=== PATIENT | male | born 1990 | race Caucasian/White ===

== ENCOUNTER 2019-09-28 22:51 | Emergency (ER) | payer OTHER, SELFPAY ==
[2019-09-28 22:53] VITALS: BP 148/74; PULSE 109; RESP 18; TEMP 36.7; O2SAT 97; BMI 21.7
[2019-09-28 23:51] VITALS: BP 126/63; PULSE 101; RESP 19; O2SAT 96
--- NOTE | 2019-09-28 23:51 | ED_ITS ---
HPI - General Adult General: Chief complaint: Upper Respiratory Infection Stated complaint: fever,sore throat,body aches Time Seen by Provider: 09/28/19 23:51 History of Present Illness: HPI narrative: Fever and chills last couple days missed work today desires a note for work does have some body aches sore throat. complaint: uri Onset (ago): day(s) Associated symptoms: Deny chest pain, dyspnea, headache(s), nausea, rash or vomiting Review of Systems Const: Denies: fever, chills or body aches Eyes: Denies: change in vision or blurry vision ENMT: Reports: throat pain and nasal congestion Card: Denies: chest pain or shortness of breath on exertion Resp: Reports: non-productive cough; Denies: shortness of breath or productive cough GI: Denies: abdominal pain, nausea or vomiting : Denies: difficulty urinating Musc: Denies: extremity pain Skin/Breast: Denies: rash Neuro: Denies: headache Psych: Denies: anxiety or depression Logan/Lymph: Denies: easy bruising PFSH ED PFSH: Statuses (acute, chronic, etc) shown below reflect problem list status as previously entered and may not be historically accurate Social History Smoking and tobacco status: current every day smoker Physical Exam Const: COMMON NORMALS: no apparent distress, average body habitus and oriented x3 HENMT: COMMON NORMALS: normocephalic HEAD & SCALP: normal to inspection and normocephalic FACE & SINUS: sinus tenderness NOSE: nasal discharge Eye: COMMON NORMALS: conjunctivae normal GENERAL EYE: normal appearance of both eyes CONJUNCTIVA: Yes conjunctivae normal Neck/C-Spine: COMMON NORMALS: no JVD Chest: COMMONS NORMALS: inspection of chest normal Resp: COMMON NORMALS: normal respiratory effort and clear to auscultation bilaterally AUSCULTATION: clear to auscultation bilaterally Cardio: COMMON NORMALS: no JVD, regular rate and regular rhythm RATE: regular rate RHYTHM: regular rhythm GI: COMMON NORMALS: normal to inspection, nondistended, normoactive bowel sounds Extremity: COMMON NORMALS: normal to inspection and full ROM Neuro: COMMON NORMALS: oriented x3 Course Vital Signs: Vital signs: Vital Signs Temperature 98.1 F 09/28/19 22:53 Pulse Rate 109 H 09/28/19 22:53 Respiratory Rate 18 01/08/20 22:53 Blood Pressure 148/74 09/28/19 22:53 Pulse Oximetry 97 09/28/19 22:53 Discharge Plan Discharge Clinical Impression: Upper respiratory infection Qualifiers: URI type: acute pharyngitis Pharyngitis/tonsillitis etiology: other specified organisms Qualified Code(s): J02.8 - Acute pharyngitis due to other specified organisms Condition: Stable Prescriptions: New cephalexin [Keflex] 500 mg capsule 500 mg PO TID 7 Days Qty: 21 RF: 0 No Action No Known Home Medications RF: 0 Discharge Diet: Usual diet Discharge Activity: Increase activity as tolerated Patient Instructions: Upper Respiratory Infection (ED) Activity Restrictions/Additional Instructions: Follow-up with medical provider as directed. Take medications as prescribed. Return to the ER are your medical provider if condition worsens. Read and understand discharge instructions. Stand Alone Forms: Work/Release Restrictions Coding Level of Care Code ED Java Front End Web Developer for Jemma Antunez
[2019-09-28] MEDS: cephALEXin 500 mg Capsule PO (23:59)
[2019-09-29 00:12] VITALS: BP 119/79; PULSE 100; RESP 18; TEMP 36.9; O2SAT 96
== END 2019-09-29 00:14 | disposition home or self-care (01) ==
PROVIDERS: Emergency Provider Nurse Practitioner Family
DX: J02.8 Acute pharyngitis due to other specified organisms (principal); F17.210 Nicotine dependence, cigarettes, uncomplicated
CPT/HCPCS: 99281

== ENCOUNTER 2020-09-14 16:29 | Emergency (ER) | payer SELFPAY ==
--- NOTE | 2020-09-14 16:52 | XRR_ITS ---
PROCEDURE INFORMATION: Exam: XR Right Shoulder Exam date and time: 09/14/2020 4:53 PM Age: 30 years old Clinical indication: Injury or trauma; Fall; Blunt trauma (contusions or hematomas); Patient HX: Fell on right shoulder TECHNIQUE: Imaging protocol: XR Right shoulder. Views: 2 or more views. COMPARISON: No relevant prior studies available. FINDINGS: Bones/joints: Comminuted fracture through the mid right clavicle with inferior overriding of the distal fragment. The other bones appear intact and in normal alignment. Soft tissues: Normal. XR/XR shoulder RT min 2V* [id number] IMPRESSION: Displaced right clavicle fracture.
--- NOTE | 2020-09-14 16:52 | XRR_ITS ---
PROCEDURE INFORMATION: Exam: XR Right Clavicle, Complete Exam date and time: 09/14/2020 4:53 PM Age: 30 years old Clinical indication: Injury or trauma; Fall; Blunt trauma (contusions or hematomas); Patient HX: Fell on right shoulder TECHNIQUE: Imaging protocol: XR Right clavicle complete. Any number of views. COMPARISON: No relevant prior studies available. FINDINGS: Bones/joints: Comminuted fracture through the mid right clavicle. Inferior overriding of the distal fracture fragment. Soft tissues: Normal. XR/[place] [id number] IMPRESSION: Displaced right clavicle fracture.
[2020-09-14 16:53] VITALS: BP 153/97; PULSE 90; RESP 14; TEMP 36.6; O2SAT 99; BMI 22.6
[2020-09-14] MEDS: TRAMadol 50 mg Tablet PO (17:16)
--- NOTE | 2020-09-14 17:26 | W.ED.EXTPRO ---
HPI - Extremity Problem General: Chief complaint: Extremity Injury, Upper Stated complaint: injury to rt collarbone Time Seen by Provider: 09/14/20 17:04 History of Present Illness: HPI Narrative: Fell yesterday while skateboarding injuring his right clavicle. Complaint: extremity pain Onset (ago): day(s) Pain Consistency: constant Location: right Severity scale (1-10): 4 Quality: aching Radiation: none Relieving factors: immobilization Exacerbating factors: range of motion Associated symptoms: Reports no associated symptoms; Deny chest pain, fever(s) or rash Review of Systems Const: Denies: fever(s), chills or body aches Eyes: Denies: change in vision or blurry vision ENMT: Denies: throat pain or nasal congestion Card: Denies: chest pain or dyspnea on exertion Resp: Denies: dyspnea, productive cough or non-productive cough GI: Denies: abdominal pain, nausea or vomiting : Denies: difficulty urinating Musc: Reports: extremity pain (Right clavicle area fell while skateboarding yesterday) Skin/Breast: Denies: rash Neuro: Denies: headache(s) Psych: Denies: anxiety or depression Logan/Lymph: Denies: easy bruising PFSH ED PFSH: Social History Smoking and tobacco status: current every day smoker Physical Exam Const: COMMON NORMALS: no acute distress and patient oriented x3 Extremity: RIGHT UPPER EXTREMITY: Yes clavicle (Tender midshaft mild swelling) Neuro: COMMON NORMALS: patient oriented x3 Psych: COMMON NORMALS: mental status grossly normal Course Vital Signs: Vital signs: Vital Signs Temperature 97.9 F 09/14/20 16:53 Pulse Rate 90 09/14/20 16:53 Respiratory Rate 14 09/14/20 16:53 Blood Pressure 153/97 09/14/20 16:53 Pulse Oximetry 99 09/14/20 16:53 Discharge Plan Discharge Patient Disposition: Home Clinical Impression: Fracture of clavicle Qualifiers: Encounter type: initial encounter Clavicle location: shaft Fracture type: closed Fracture alignment: displaced Laterality: right Qualified Code(s): S42.021A - Displaced fracture of shaft of right clavicle, initial encounter for closed fracture Condition: Stable Prescriptions: New tramadol 50 mg tablet 50 mg PO TID PRN (Reason: pain) Qty: 14 RF: 0 Discharge Orders: Discharge ED (Routine); Ordered 09/14/20 Ordered By: Jose Caruso Discharge Diet: Advance as tolerated Discharge Activity: Increase activity as tolerated Patient Instructions: Clavicle Fracture (ED) Activity Restrictions/Additional Instructions: Follow-up with medical provider as directed. Take medications as prescribed. Return to the ER or your medical provider if condition worsens. Please read and understand discharge instructions. If any questions ask please. Coding Level of Care Code ED Electric Motor Repairer for Jemma Fwd Exam Expanded Problem Focused
--- NOTE | 2020-09-17 08:30 | DCPLANNER ---
dental laboratory manager had message to schedule a follow up appointment for patient with ortho. dental laboratory manager called the ortho clinic, spoke with Svetlana, gave clinic patients information. dental laboratory manager was told that patients information would be printed and reviewed. Clinic will call patient with appointment information.
--- NOTE | 2020-09-18 08:33 | DCPLANNER ---
Svetlana from [facility] called piano case maker stating that the clinic tried to call patient and is unable to reach patient to schedule an appointment. manager cash called phone number [phone], this number is no longer in service. manager cash called phone number [phone] and left a voicemail with patients friend.
== END 2020-09-14 17:35 | disposition home or self-care (01) ==
PROVIDERS: Emergency Provider Nurse Practitioner Family
DX: S42.021A Displaced fracture of shaft of right clavicle, initial encounter for closed fracture (principal); F17.210 Nicotine dependence, cigarettes, uncomplicated; V00.131A Fall from skateboard, initial encounter
CPT/HCPCS: 12345; 73000; 73030; 99281; 99283

== ENCOUNTER 2022-02-10 11:52 | Observation (INO) | payer MEDICAID, SELFPAY ==
[2022-02-10 12:15] VITALS: BP 142/97; PULSE 112; RESP 17; TEMP 36.2; O2SAT 100; BMI 21.7
--- NOTE | 2022-02-10 12:30 | CT_ITS ---
WS: [id number] CT ABDOMEN AND PELVIS WITH CONTRAST HISTORY: abd pain, RIGHT lower quadrant pain for one day. TECHNIQUE: Imaging performed of the abdomen and pelvis with IV contrast. Single phase imaging of the abdomen. Coronal and sagittal reformats are submitted. All CT scans at [facility] use at [address] one of these dose optimization techniques: automated exposure control; mA and/or kV adjustment per patient size (includes targeted exams where dose is matched to clinical indication); or iterative re construction. IV CONTRAST: Omnipaque 350; 50 mL IV. Oral contrast: No DLP: 837.12 mGy.cm COMPARISON: None available. Lower thorax: Lung bases are clear. Heart is normal size. No hiatal hernia. Liver/biliary system: Normal size liver. There is an area of decreased density surrounding the hepati c veins and the caudate lobe in the central liver. Normal course of the vasculature with no displacem ent or splaying. Favor this is probably hepatic steatosis. No bile duct dilatation. Gallbladder: Mildly hydropic gallbladder. There is a very large amount of stranding surrounding the g allbladder. Large amount of inflammation extends from the gallbladder to involve the hepatic flexure and the duodenum and pancreatic head and uncinate process. No stones are noted within the gallbladder . Pancreas: Pancreas is normal size. Mild stranding and fluid surrounding the pancreatic head. No bile duct dilatation. Spleen: Normal size spleen. No mass or infarct. Adrenal glands: Normal. Right kidney: Normal. Left kidney: Normal. Aorta: Normal. Lymphadenopathy: None. Free fluid: Free fluid within the mesentery with a large amount of mesenteric edema. This abnormality is increased RIGHT upper quadrant The gallbladder, duodenal C-loop and hepatic flexure. No free air. GI tract: Stomach is distended with fluid. Second and third portion of the duodenum is minimal disten ded with fluid and air with adjacent edema. No small bowel obstruction. The appendix is identified an d does appear normal although is closely associated with the inflammation in the RIGHT upper quadrant . The appendix is retrocecal and extends to the tip of the RIGHT lobe of the liver. There is extensiv e fecal retention throughout the colon. Abdominal wall: Unremarkable abdominal wall. No hernia. Pelvis: No free fluid. Minimally distended urinary bladder. Marked fecal retention in the colon. Bones: Negative. CT/CT abdomen pelvis w con* [id number] IMPRESSION: 1. Significant inflammation noted in the RIGHT upper quadrant with fluid and m esenteric edema. The area of inflammation involves the gallbladder, duodenal C- loop, hepatic flexure and the pancreatic head. There is a large amount of edema and mesenteric stranding. Due to the extensive process differential includes a cute cholecystitis, colitis, pancreatitis and duodenitis. 2. Recommend follow-up gallbladder ultrasound to evaluate for stones or sludge . The common bile duct by CT appears normal. 3. The appendix is visualized and does extend retrocecal and is closely associ ated with the inflammation but there is no dilatation. Appendicitis is not favo red. 4. Area of decreased attenuation in the central superior liver is probably fro m hepatic steatosis. Recommend follow-up nonemergent MRI liver with and without contrast.
--- NOTE | 2022-02-10 12:35 | ED_ITS ---
HPI - Abdominal Pain General: Chief Complaint: Abdominal Pain Stated Complaint: abdominal pain Time Seen by Provider: 02/10/22 12:18 Source: patient Mode of arrival: ambulatory Limitations: no limitations History of Present Illness: 31-year-old male who states has been having right upper quadrant and epigastric abdominal pain since yesterday. He states he also had some nausea vomiting diarrhea. He states pain is worsened throughout the day and sharp in nature rates an 8 out of 10. Denies any radiation of his pain. No history of abdominal issues in the past no abdominal surgeries is a daily drinker of alcohol. Associated Symptoms: Reports nausea; Denies chills, dysuria and fever(s) Review of Systems Const: Denies: fever(s), chills, body aches or change in appetite Eyes: Denies: blurry vision or eye discomfort ENMT: Denies: throat pain or dental pain Card: Denies: chest pain Resp: Denies: dyspnea GI: Reports: abdominal pain and nausea : Denies: dysuria Musc: Denies: neck pain or back pain Skin/Breast: Denies: rash Neuro: Denies: headache(s) Psych: Denies: depression Logan/Lymph: Denies: easy bruising All/Imm: Denies: urticaria PFSH ED PFSH: Medical History No pertinent past medical history Social History Smoking and tobacco status: current every day smoker Physical Exam Const: COMMON NORMALS: no acute distress, patient oriented x3 and healthy appearing HENMT: COMMON NORMALS: normocephalic and atraumatic HEAD & SCALP: normocephalic and atraumatic Eye: COMMON NORMALS: Equal, round and reactive pupils present and EOMs intact bilaterally PUPIL: Yes Equal, round and reactive pupils present Neck/C-Spine: COMMON NORMALS: full ROM and supple Chest: COMMONS NORMALS: normal inspection of the chest and normal palpation of entire chest wall Resp: COMMON NORMALS: normal respiratory effort, No retractions, No use of accessory muscles and clear to auscultation bilaterally AUSCULTATION: clear to auscultation bilaterally Cardio: COMMON NORMALS: regular rate, regular rhythm and No murmurs present (Cardio) RATE: regular rate RHYTHM: regular rhythm GI: COMMON NORMALS: Normal to inspection, nondistended, normoactive bowel sounds present, Soft to palpation, non-tender and no masses PALPATION: Yes Soft to palpation and Yes Tenderness to palpation present (GI) Details: RUQ Extremity: COMMON NORMALS: normal to inspection and full ROM Neuro: COMMON NORMALS: patient oriented x3, moves all extremities and no focal motor deficits Psych: COMMON NORMALS: mental status grossly normal, Normal thought process present and cooperative THOUGHT PROCESS: Normal thought process present Skin: COMMON NORMALS: no rashes or lesions noted and no wounds GENERAL SKIN EXAM: no rashes or lesions noted Course Vital Signs: Vital signs: Vital Signs Temperature 97.1 F L 02/10/22 12:15 Pulse Rate 112 H 02/10/22 12:15 Respiratory Rate 16 02/10/22 14:53 Blood Pressure 142/97 02/10/22 12:15 Pulse Oximetry 100 02/10/22 12:15 MDM - Abdominal Pain Medical Decision Making Patient presents here with abdominal pain CT showed possible cholecystitis versus duodenitis pancreatitis with inflammation he is a daily drinker as well. I did speak to surgeon on-call Dr. Haq will admit with IV antibiotics IV fluids along with a HIDA scan in the morning hospitalist consulted for his alcohol abuse he has no signs of withdrawals here. Lab Data : 02/10/22 12:44 02/10/22 14:30 Labs/Radiology: Radiology Impressions Abdomen/Pelvis CT 02/10/22 12:30 IMPRESSION: 1. Significant inflammation noted in the RIGHT upper quadrant with fluid and mesenteric edema. The area of inflammation involves the gallbladder, duodenal C- loop, hepatic flexure and the pancreatic head. There is a large amount of edema and mesenteric stranding. Due to the extensive process differential includes acute cholecystitis, colitis, pancreatitis and duodenitis. 2. Recommend follow-up gallbladder ultrasound to evaluate for stones or sludge. The common bile duct by CT appears normal. 3. The appendix is visualized and does extend retrocecal and is closely associated with the inflammation but there is no dilatation. Appendicitis is not favored. 4. Area of decreased attenuation in the central superior liver is probably from hepatic steatosis. Recommend follow-up nonemergent MRI liver with and without contrast. Laboratory Results WBC 7.3 10^3/uL (4.0-10.0) 02/10/22 12:44 RBC 4.78 10^6/uL (4.1-5.3) 02/10/22 12:44 Hgb 16.0 g/dL (11.7-16.6) 02/10/22 12:44 Hct 46.2 % (42.0-52.0) 02/10/22 12:44 MCV 96.7 fl (80-94) H 02/10/22 12:44 MCH 33.5 pg (28.0-34.0) 02/10/22 12:44 MCHC 34.6 g/dL (30.0-36.0) 02/10/22 12:44 RDW 12.5 % (12.1-15.1) 02/10/22 12:44 Plt Count 212 10^3/cmm (130-400) 02/10/22 12:44 MPV 13.3 fL (7.4-10.4) H 02/10/22 12:44 Lymph % (Auto) Not Reportable 02/10/22 12:44 [place] % (Auto) Not Reportable 02/10/22 12:44 Lymph # (Auto) Not Reportable 02/10/22 12:44 [place] # (Auto) Not Reportable 02/10/22 12:44 Total Counted 100 (0-100) 02/10/22 12:44 Atypical Lymphs % 4.0 % (0-5) 02/10/22 12:44 Absolute Neutrophils 5.8 10^3/cmm (1.4-6.5) 02/10/22 12:44 Segmented Neutrophils 80 % 02/10/22 12:44 Abs Segm Neuts (Man) 5.8 10/cmm (1.6-7.1) 02/10/22 12:44 Band Neutrophils 0.0 % 02/10/22 12:44 Abs Band Neuts (Man) 0.0 10^3/cmm (0.0-1.2) 02/10/22 12:44 Absolute Lymphocytes 1.2 10^3/cmm (1.2-3.4) 02/10/22 12:44 Lymphocytes (Manual) 13 % 02/10/22 12:44 Monocytes (Manual) 1.0 % 02/10/22 12:44 Absolute Monocytes 0.1 10^3/cmm (0.1-0.6) 02/10/22 12:44 Eosinophils (Manual) 2 % 02/10/22 12:44 Absolute Eosinophils 0.1 10^3/cmm (0.0-0.7) 02/10/22 12:44 Basophils (Manual) 0.0 % 02/10/22 12:44 Absolute Basophils 0.0 10^3/cmm (0.0-0.2) 02/10/22 12:44 Platelet Estimate Normal (Normal) 02/10/22 12:44 Sodium 133 mmol/L (136-145) L 02/10/22 14:30 Potassium 4.0 mmol/L (3.5-5.1) 02/10/22 14:30 Chloride 100 mmol/L (98-107) 02/10/22 14:30 Carbon Dioxide 17 mmol/L (22-29) L 02/10/22 14:30 Anion Gap 20.0 (5-19) H 02/10/22 14:30 BUN 8 mg/dL (6-20) 02/10/22 14:30 Creatinine 0.7 mg/dL (0.7-1.2) 02/10/22 14:30 GFR Calculation 129.9 mL/min (90-130) 02/10/22 14:30 Glucose 127 mg/dL (65-115) H 02/10/22 14:30 Calculated Osmolality 276 mOsm/kg (285-295) L 02/10/22 14:30 Calcium 8.1 mg/dL (8.5-10.5) L 02/10/22 14:30 Total Bilirubin 1.4 mg/dL (0.15-1.2) H 02/10/22 14:30 AST 380 U/L (0-40) H 02/10/22 14:30 ALT 206 U/L (0-41) H 02/10/22 14:30 Alkaline Phosphatase 250 IU/L (40-130) H 02/10/22 14:30 Total Protein 5.2 g/dL (6.6-8.7) L 02/10/22 14:30 Albumin 3.0 g/dL (3.5-5.2) L 02/10/22 14:30 Globulin 2.2 g/dL (1.3-4.6) 02/10/22 14:30 Lipase 165 U/L (13-60) H 02/10/22 14:30 Ethyl Alcohol < 10 mg/dL (0-10) 02/10/22 14:30 Discharge Plan Discharge Patient Disposition: Admitted As Inpatient Clinical Impression: Alcohol abuse Abdominal pain Qualifiers: Abdominal location: right upper quadrant Qualified Code(s): R10.11 - Right upper quadrant pain Condition: Stable Coding Level of Care Code ED Regional Office Coordinator for Jemma Fwd Exam Comprehensive
[2022-02-10] MEDS: sodium chloride 0.9% 1,000 ML 999 ML IV (12:50)
[2022-02-10 12:57] VITALS: RESP 20
[2022-02-10] MEDS: ondansetron 2 mg/ML SDV 2 mL 4 MG IVP (12:57)
[2022-02-10] MEDS: morphine 4 mg/mL SDV 1 mL IVP ×2 (12:57→21:44)
[2022-02-10 13:04] LABS: Hematocrit 46.2 % (42.0-52.0); Mean Corpuscular HGB Conc 34.6 g/dL (30.0-36.0); Mean Corpuscular Hemoglobin 33.5 pg (28.0-34.0); Mean Corpuscular Volume 96.7 fl (80-94); Mean Platelet Volume 13.3 fL (7.4-10.4); Platelet Count 212 10^3/cmm (130-400); Red Blood Count 4.78 10^6/uL (4.1-5.3); Red Cell Distribution Width 12.5 % (12.1-15.1); White Blood Count 7.3 10^3/uL (4.0-10.0)
[2022-02-10] MEDS: iohexol 300 mg/mL 100 mL Btl IV (13:22)
[2022-02-10 13:50] LABS: Slide Review Slide Review Perform
[2022-02-10 13:51] LABS: Absolute Segmented Neutrophil 5.8 10/cmm (1.6-7.1); Segmented Neutrophils 80 %; Total Cells Counted 100 (0-100)
[2022-02-10 13:52] LABS: Absolute Eosinophils 0.1 10^3/cmm (0.0-0.7); Absolute Neutrophil 5.8 10^3/cmm (1.4-6.5); Eosinophils 2 %; Lymphocytes 13 %; Lymphocytes Absolute 1.2 10^3/cmm (1.2-3.4); Monocytes Absolute 0.1 10^3/cmm (0.1-0.6); Platelet Estimate Normal (Normal)
[2022-02-10 14:53] VITALS: RESP 16
[2022-02-10] MEDS: HYDROmorphone 1 mg/mL INJ 1 mL IVP (14:53)
[2022-02-10 15:06] LABS: Alkaline Phosphatase 250 IU/L (40-130); Blood Urea Nitrogen 8 mg/dL (6-20); Calcium 8.1 mg/dL (8.5-10.5); Carbon Dioxide 17 mmol/L (22-29); Chloride 100 mmol/L (98-107); Globulin 2.2 g/dL (1.3-4.6); Glomerular Filtration Rate 129.9 mL/min (90-130); Glucose 127 mg/dL (65-115); Lipase 165 U/L (13-60); Osmolality Calculated 276 mOsm/kg (285-295); Sodium 133 mmol/L (136-145); Total Bilirubin 1.4 mg/dL (0.15-1.2); Total Protein 5.2 g/dL (6.6-8.7)
[2022-02-10 15:17] LABS: Alcohol Level < 10 mg/dL (0-10)
[2022-02-10 15:23] LABS: Alanine Aminotransferase 206 U/L (0-41); Aspartate Amino Transferase 380 U/L (0-40)
[2022-02-10] MEDS: piperacillin-tazobactam 3.375 GM in sodium chloride 0.9% (plus) 50 ML IV (15:44)
--- NOTE | 2022-02-10 15:44 | P.CONIM_ITS ---
Providers/Reason For Consult Consulting Physician/Specialty*: Chase Haq/general surgery Reason for Consult*: Management for Alcohol abuse History of Present Illness History of Present Illness Larry Gross is a 31 year old male with pmh of Chronic Alcohol abuse drink about 1 to 1/2 pint dialy came in with c/o rt lower as well as rt upper quadrant abdominal pain started since yesterday,describe it as sharp pain,accompanied with,nausea and bilious vomiting ( 1-2 Episodes), he is also complaining of subjective fever as well as chills. Upon arrival in the ER he was worked up for above mention complain: Pertinent Imaging studies: CT abdomen pelvis w con: 1.? Significant inflammation noted in the RIGHT upper quadrant with fluid and mesenteric edema. The area of inflammation involves the gallbladder, duodenal C- loop, hepatic flexure and the pancreatic head. There is a large amount of edema and mesenteric stranding. Due to the extensive process differential includes acute cholecystitis, colitis, pancreatitis and duodenitis. 2.? Recommend follow-up gallbladder ultrasound to evaluate for stones or sludge. The common bile duct by CT appears normal. 3.? The appendix is visualized and does extend retrocecal and is closely associated with the inflammation but there is no dilatation. Appendicitis is not favored. 4.? Area of decreased attenuation in the central superior liver is probably from hepatic steatosis. Recommend follow-up nonemergent MRI liver with and without contrast. Pertinent Labs : WBC: 7.3 , H&H : 16/46 , PLT : 212, NA : 133, K: 4 , BUN/SCR : 8/0.7 , Ca: 8.1 , T.B : 1.4 , AST: 380, ALT : 206, ALP : 250 , ALB:3 , LIPASE :165 Review of Systems General: Reports: 10 or more systems reviewed and unremarkable except in HPI and below Const: Reports: fever(s) and chills; Denies: body aches, change in appetite or diaphoresis Card: Denies: palpitations, edema, swelling of feet/ankles, dyspnea on exertion, orthopnea or leg pain with exertion Resp: Denies: dyspnea, productive cough, wheezing or pain on inspiration GI: Reports: abdominal pain, nausea and vomiting; Denies: diarrhea or constipation : Denies: flank pain or difficulty urinating Musc: Denies: back pain, extremity pain or extremity swelling Neuro: Denies: headache(s), difficulty walking or confusion Medications/Allergies Home Medications Medication Instructions Recorded Confirmed Last Taken Type No Known Home Medications 02/10/22 02/10/22 Unknown History Allergies Allergy/AdvReac Type Severity Reaction Status Date / Time No Known Allergies Allergy Verified 02/10/22 13:05 PFSH Acute PFSH: Medical History No pertinent past medical history Social History Smoking and tobacco status: current every day smoker Vitals/I&O/Wt Last Vital Signs Temp 97.1 F L 02/10/22 12:15 Pulse 112 H 02/10/22 12:15 Resp 16 02/10/22 14:53 BP 142/97 02/10/22 12:15 Pulse Ox 100 02/10/22 12:15 Weight last 48 hrs Weight 61.235 kg Physical Exam Const: COMMON NORMALS: patient oriented x3 HENMT: COMMON NORMALS: normocephalic, atraumatic, hearing grossly normal bilaterally and external ears normal HEAD & SCALP: normocephalic and atraumatic EXTERNAL EAR: Yes external ears normal Eye: COMMON NORMALS: no scleral icterus GENERAL EYE: appearance normal, both eyes and all related structures Chest: COMMONS NORMALS: normal inspection of the chest and normal palpation of entire chest wall CHEST: Yes Symmetrical chest wall rise Resp: COMMON NORMALS: normal respiratory effort, No retractions, No use of accessory muscles and clear to auscultation bilaterally EFFORT & INSPECTION: Yes symmetric chest movement AUSCULTATION: clear to auscultation bilaterally Cardio: COMMON NORMALS: regular rate, regular rhythm, S1 normal heart sound present, S2 normal heart sound present, No gallops present (Cardio), No murmurs present (Cardio), No rub (Cardio) and Peripheral pulses 2+ throughout RATE: r egular rate RHYTHM: regular rhythm HEART SOUNDS: S1 normal heart sound present and S2 normal heart sound present PERIPHERAL PULSES: Peripheral pulses 2+ throughout GI: COMMON NORMALS: Normal to inspection, nondistended, normoactive bowel sounds present, No hepatosplenomegaly present and no masses AUSCULTATION: Yes normoactive bowel sounds PALPATION: Yes No hepatosplenomegaly present RECTAL EXAM: Yes deferred OTHER: Right upper quadrant as well as lower quadrant tenderness present, no guarding no rigidity no rebound tenderness Extremity: COMMON NORMALS: no clubbing, cyanosis or edema and no pedal edema Neuro: COMMON NORMALS: patient oriented x3 Data : 02/11/22 02:55 02/11/22 02:55 A&P Assessment and plan (1) Alcohol abuse: Status: Acute (2) Cholecystitis: Status: Acute (3) Transaminitis: Status: Acute (4) Duodenitis: Status: Acute Plan Assessment: Alcohol abuse: Currently not in withdrawal Monitor CIWA protocol Continue IV hydration Cholecystitis: HIDA scan:Normal HIDA scan. No cystic or common bile duct obstruction. Normal gallbladder ejection fraction. Surgery on board Transaminitis: Likely secondary to alcohol abuse, possible passed gallstone Hepatitis B surface antigen negative Hepatitis B core total antibody nonreactive Hep C antibody nonreactive Hepatitis B surface antibody 3.5 Continue to monitor CMP CODE STATUS: Full code DVT prophylaxis: On Lovenox Consult Attestations Medical Necessity Statement: Per primary team Time Spent in Patient Care: Greater than 35 minutes (>than 50% of time spent in counselling and/or direct pt care on unit) . Coding Level of Care Code Acute Ceramic Tile Installer for g Fwd Exam Comprehensive Diagnoses Alcohol abuse F10.10 Cholecystitis K81.9 Transaminitis R74.01 Duodenitis K29.80
[2022-02-10] MEDS: enoxaparin 40 mg/0.4 mL Syringe SUBCUT (17:30)
[2022-02-10] MEDS: famotidine 20 mg/2 mL INJ IVP (17:33)
[2022-02-10] MEDS: nicotine 21 mg Patch 1 PATCH TRANSDERMA (18:17)
[2022-02-10] MEDS: docusate sodium 100 mg Capsule PO (18:18)
--- NOTE | 2022-02-10 19:11 | PC.NURSE ---
REPORT GIVEN TO [facility].
[2022-02-10 19:58] VITALS: BMI 21.7
[2022-02-10 20:00] VITALS: BP 136/90; PULSE 90; RESP 17; TEMP 37; O2SAT 98
[2022-02-10] MEDS: sodium chloride 0.9% 1,000 ML 100 ML IV (20:46)
[2022-02-10 21:44] VITALS: RESP 18
[2022-02-11] VITALS (12 sets, daily range): BP systolic 124–149; BP diastolic 69–99; PULSE 81–97; RESP 14–18; TEMP 36.5–37.8; O2SAT 97–100
[2022-02-11] MEDS: acetaminophen 325 mg Tablet 650 MG PO ×2 (03:05→16:55)
[2022-02-11 03:12] LABS: Basophils # 0.1 10^3/uL (0.0-0.1); Basophils % 0.7 %; Eosinophils # 0.2 10^3/uL (0.0-0.8); Eosinophils % 2.7 %; Hematocrit 38.1 % (42.0-52.0); Hemoglobin 12.5 g/dL (11.7-16.6); Lymphocytes # 2.1 10^3/uL (0.8-4.8); Lymphocytes % 27.6 %; Mean Corpuscular HGB Conc 32.8 g/dL (30.0-36.0); Mean Corpuscular Volume 100.5 fl (80-94); Monocytes # 0.3 10^3/uL (0.2-0.9); Monocytes % 3.5 %; Neutrophils # 5.01 10^3/uL (1.8-7.7); Neutrophils % 65.1 %; Nucleated Red Blood Cells % 0 %; Platelet Count 118 10^3/cmm (130-400); Red Blood Count 3.79 10^6/uL (4.1-5.3); Red Cell Distribution Width 12.4 % (12.1-15.1); White Blood Count 7.7 10^3/uL (4.0-10.0)
[2022-02-11 03:29] LABS: Slide Review Slide Review Perform
[2022-02-11 03:34] LABS: Lactic Sepsis W/Reflex 1.2 mmol/L (0.5-2.2)
[2022-02-11 03:35] LABS: Chloride 98 mmol/L (98-107); Globulin 2.4 g/dL (1.3-4.6); Glomerular Filtration Rate 129.9 mL/min (90-130)
[2022-02-11 03:40] LABS: Procalcitonin 0.26 ng/mL (0-0.5)
[2022-02-11 03:51] LABS: Hepatitis B Core AB, Total Non-Reactive (Nonreactive); Hepatitis B Surface AB 3.5 (11.5-1000); Hepatitis B Surface Antigen Non-Reactive (Nonreactive); Hepatitis C Virus Antibody Non-Reactive (Nonreactive)
[2022-02-11 04:04] LABS: Alanine Aminotransferase 171 U/L (0-41); Alkaline Phosphatase 273 IU/L (40-130); Aspartate Amino Transferase 246 U/L (0-40); Blood Urea Nitrogen 5 mg/dL (6-20); Calcium 8.2 mg/dL (8.5-10.5); Carbon Dioxide 25 mmol/L (22-29); Glucose 115 mg/dL (65-115); Magnesium 1.6 mg/dL (1.7-2.3); Osmolality Calculated 268 mOsm/kg (285-295); Sodium 130 mmol/L (136-145); Total Bilirubin 1.5 mg/dL (0.15-1.2); Total Protein 5.2 g/dL (6.6-8.7)
[2022-02-11 04:06] LABS: Anion Gap 11.7 (5-19); Potassium 3.7 mmol/L (3.5-5.1)
[2022-02-11] MEDS: sodium chloride 0.9% 1,000 ML 100 ML IV (06:05)
[2022-02-11] MEDS: famotidine 20 mg/2 mL INJ IVP (06:05)
[2022-02-11] MEDS: morphine 4 mg/mL SDV 1 mL IVP ×2 (08:53→20:55)
[2022-02-11] MEDS: docusate sodium 100 mg Capsule PO (08:55)
[2022-02-11] MEDS: sodium chloride 0.9% 1,000 ML 30 ML IV (11:16)
--- NOTE | 2022-02-11 11:31 | ANES.PREANE2 ---
Pre-Anesthetic Assessment Height/Weight: Height 1.68 m Weight 61.235 kg Temp Pulse Resp BP Pulse Ox 97.7 F 91 18 124/75 97 02/11/22 11:16 02/11/22 11:16 02/11/22 11:16 02/11/22 11:16 02/11/22 11:16 Preop Diagnosis: abdominal pain Operation Date: 02/11/22 12:00 Proposed Procedures p EGD(Not Applicable) - Raza Haq MD Familial anesthetic complications: none Was Beta Chetna taken within 24 hours: N/A Was Clonidine taken within 24 hours: N/A Last intake: > 8 hrs Social Alcohol and Tobacco Exam alert, oriented x 3, clear to auscultation bilaterally and regular rate & rhythm Airway Mallampati: Class II Dentition: other (rotting in back) Pulmonary None reported CV/HEM None reported None reported Hepatic None reported GI acute abdominal pain - new onset Metabolic None reported Musc/skel None reported Neuropsych None reported Anesthetic Plan ASA status: 2 Anesthesia: MAC Risk of > 500 ml blood loss (7ml/kg in children): No Medications/Allergies Home Medications Medication Instructions Recorded Confirmed Last Taken Type No Known Home Medications 02/10/22 02/10/22 Unknown History Allergies Allergy/AdvReac Type Severity Reaction Status Date / Time No Known Allergies Allergy Verified 02/10/22 13:05 Current Medications Generic Name Dose Route Start Last Admin Trade Name Freq PRN Reason Stop Dose Admin Acetaminophen 650 mg 02/10/22 15:38 02/11/22 03:05 Acetaminophen 325 Mg Tablet PO 650 mg Q6H PRN Administration Mild/Mod Pain Or Temp >/= 101 Docusate Sodium 100 mg 02/10/22 18:00 02/11/22 08:55 Docusate Sodium 100 Mg Capsule PO 100 mg BID TOÑA Administration Enoxaparin Sodium 40 mg 02/10/22 16:30 02/10/22 17:30 Enoxaparin 40 Mg/0.4 Ml Syringe SUBCUT 40 mg Q24H TOÑA Administration Famotidine 20 mg 02/10/22 17:00 02/11/22 06:05 Famotidine 20 Mg/2 Ml Inj IVP 20 mg Q12H TOÑA Administration Sodium Chloride 1,000 mls @ 100 mls/hr 02/10/22 19:50 02/11/22 06:05 Sodium Chloride 0.9% IV 100 mls/hr .Q10H TOÑA Administration Morphine Sulfate 4 mg 02/10/22 19:50 02/11/22 08:53 Morphine 4 Mg/Ml Sdv 1 Ml IVP 4 mg Q4H PRN Administration SEVERE PAIN PFSH Anesthesia Medical History No pertinent past medical history Social History Smoking and tobacco status: current every day smoker Data Anesthesia : 02/11/22 02:55 02/11/22 02:55 Short CBC 02/10/22 02/11/22 Range/Units 12:44 02:55 WBC 7.3 7.7 (4.0-10.0) 10^3/uL Hgb 16.0 12.5 (11.7-16.6) g/dL Hct 46.2 38.1 L (42.0-52.0) % MCV 96.7 H 100.5 H (80-94) fl Plt Count 212 118 L D (130-400) 10^3/cmm Neut % (Auto) 65.1 % Neut # (Auto) 5.01 (1.8-7.7) 10^3/uL BMP 02/10/22 02/10/22 02/11/22 12:44 14:30 02:55 Sodium Cancelled 133 L 130 L Potassium Cancelled 4.0 3.7 Chloride Cancelled 100 98 Carbon Dioxide Cancelled 17 L 25 BUN Cancelled 8 5 L Creatinine Cancelled 0.7 0.7 Glucose Cancelled 127 H 115 Calcium Cancelled 8.1 L 8.2 L Liver Function 02/10/22 02/10/22 02/11/22 Range/Units 12:44 14:30 02:55 Total Bilirubin Cancelled 1.4 H 1.5 H AST Cancelled 380 H 246 H ALT Cancelled 206 H 171 H Alkaline Phosphatase Cancelled 250 H 273 H Albumin Cancelled 3.0 L 3.0 L Cardiac Studies: No Data to Display
--- NOTE | 2022-02-11 12:19 | PM.PN ---
Subjective Subjective: No acute events overnight.HIDA scan:Normal HIDA scan. No cystic or common bile duct obstruction. Normal gallbladder ejection fraction. Medications: Medication Review Details: Generic Name Dose Route Start Last Admin Trade Name Freq PRN Reason Stop Dose Admin Acetaminophen 650 mg 02/10/22 15:38 02/11/22 03:05 Acetaminophen 32 5 Mg Tablet PO 650 mg Q6H PRN Administration Mild/Mod Pain Or Temp >/= 101 Docusate Sodium 100 mg 02/10/22 18:00 02/11/22 08:55 Docusate Sodium 100 Mg Capsule PO 100 mg BID TOÑA Administration Enoxaparin Sodium 40 mg 02/10/22 16:30 02/10/22 17:30 Enoxaparin 40 Mg /0.4 Ml Syringe SUBCUT 40 mg Q24H TOÑA Administration Famotidine 20 mg 02/10/22 17:00 02/11/22 06:05 Famotidine 20 Mg /2 Ml Inj IVP 20 mg Q12H TOÑA Administration Sodium Chloride 1,000 mls @ 100 m ls/hr 02/10/22 19:50 02/11/22 06:05 Sodium Chloride 0.9% IV 100 mls/hr .Q10H TOÑA Administration Morphine Sulfate 4 mg 02/10/22 19:50 02/11/22 08:53 Morphine 4 Mg/Ml Sdv 1 Ml IVP 4 mg Q4H PRN Administration SEVERE PAIN Vitals/I&O/Wt Last Vital Signs Temp 97.7 F 02/11/22 11:16 Pulse 91 02/11/22 11:16 Resp 18 02/11/22 11:16 BP 124/75 02/11/22 11:16 Pulse Ox 97 02/11/22 11:16 02/10/22 02/11/22 02/11/22 22:59 06:59 14:59 Intake Total 1290 / 1290 931.667 / 2221.667 Balance 1290 / 1290 931.667 / 2221.667 Weight last 48 hrs Weight 61.235 kg Weight 61.235 kg Physical Exam Const: COMMON NORMALS: patient oriented x3 HENMT: COMMON NORMALS: normocephalic, atraumatic, hearing grossly normal bilaterally and external ears normal HEAD & SCALP: normocephalic and atraumatic EXTERNAL EAR: Yes external ears normal Eye: COMMON NORMALS: no scleral icterus GENERAL EYE: appearance normal, both eyes and all related structures Chest: COMMONS NORMALS: normal inspection of the chest and normal palpation of entire chest wall CHEST: Yes Symmetrical chest wall rise Resp: COMMON NORMALS: normal respiratory effort, No retractions, No use of accessory muscles and clear to auscultation bilaterally EFFORT & INSPECTION: Yes symmetric chest movement AUSCULTATION: clear to auscultation bilaterally Cardio: COMMON NORMALS: regular rate, regular rhythm, S1 normal heart sound present, S2 normal heart sound present, No gallops present (Cardio), No murmurs present (Cardio), No rub (Cardio) and Peripheral pulses 2+ throughout RATE: regular rate RHYTHM: regular rhythm HEART SOUNDS: S1 normal heart sound present and S2 normal heart sound present PERIPHERAL PULSES: Peripheral pulses 2+ throughout GI: COMMON NORMALS: Normal to inspection, nondistended, normoactive bowel sounds present, No hepatosplenomegaly present and no masses AUSCULTATION: Yes normoactive bowel sounds PALPATION: Yes No hepatosplenomegaly present RECTAL EXAM: Yes deferred OTHER: Right upper quadrant as well as lower quadrant tenderness present, no guarding no rigidity no rebound tenderness Extremity: COMMON NORMALS: no clubbing, cyanosis or edema and no pedal edema Neuro: COMMON NORMALS: patient oriented x3 Data : 02/12/22 01:32 02/12/22 01:32 A&P Assessment and plan (1) Alcohol abuse: Status: Acute (2) Cholecystitis: Status: Acute (3) Transaminitis: Status: Acute (4) Duodenitis: Status: Acute Plan Assessment: Alcohol abuse: Currently not in withdrawal Monitor [facility] protocol Continue IV hydration Cholecystitis: HIDA scan:Normal HIDA scan. No cystic or common bile duct obstruction. Normal gallbladder ejection fraction. Surgery on board Duodenitis : Transaminitis: Likely secondary to alcohol abuse, possible passed gallstone Hepatitis B surface antigen negative Hepatitis B core total antibody nonreactive Hep C antibody nonreactive Hepatitis B surface antibody 3.5 Continue to monitor CMP CODE STATUS: Full code DVT prophylaxis: On Lovenox Attestations Medical Necessity Statement*: per primary team Coding Level of Care Code Acute Hadoop Analyst for [facility] Fwd Exam Comprehensive Diagnoses Alcohol abuse F10.10 Cholecystitis K81.9 Transaminitis R74.01 Duodenitis K29.80
--- NOTE | 2022-02-11 12:23 | P.HP_ITS ---
Providers/Chief Complaint Admitting Physician: Raza Haq MD Chief Complaint: abdominal pain History of Present Illness Larry Gross is a 31 year old male who presented to the ER yesterday with severe epigastric and right upper quadrant pain associated with nausea and couple of episodes of vomiting. The pain has been constant, patient has never had a similar episode in the past and he is no longer vomiting. No fevers or chills. Denies any constipation or diarrhea. He states that he drinks half pint of whiskey every night Medications/Allergies Home Medications Medication Instructions Recorded Confirmed Last Taken Type No Known Home Medications 02/10/22 02/10/22 Unknown History Allergies Allergy/AdvReac Type Severity Reaction Status Date / Time No Known Allergies Allergy Verified 02/10/22 13:05 PFSH Acute PFSH: Medical History No pertinent past medical history Social History Smoking and tobacco status: current every day smoker Vitals/I&O/Wt Last Vital Signs Temp 97.7 F 02/11/22 11:16 Pulse 91 02/11/22 11:16 Resp 18 02/11/22 11:16 BP 124/75 02/11/22 11:16 Pulse Ox 97 02/11/22 11:16 02/10/22 02/11/22 02/11/22 22:59 06:59 14:59 Intake Total 1290 / 2221.667 931.667 / 2221.667 Balance 1290 / 2221.667 931.667 / 2221.667 Weight last 48 hrs Weight 135 lb Weight 135 lb Physical Exam Narrative: HEENT: Normocephalic Eye: Sclera /conjunctiva normal Abdomen: Soft to palpation, tender right upper quadrant Neurological: Oriented to place person and time Skin: Intact, no lesions appreciated on gross exam Data : 02/11/22 02:55 02/11/22 02:55 A&P Assessment and plan (1) Abdominal pain: 31-year-old male otherwise healthy who presents to the ER with severe abdominal pain, nausea and vomiting. Patient drinks half pint of whiskey a day. On exam he is tender to palpation in the epigastric area/right upper quadrant Labs showed elevated bilirubin of 1.5, ALT, AST and alk phos and WBC was normal CT abdomen pelvis had shown significant stranding and mesenteric edema near the gallbladder, duodenum concerning for possible duodenitis well, colitis, cholecystitis. HIDA scan showed normal ejection fraction with no evidence of acute cholecystitis. We will therefore plan for EGD under MAC later today Procedure, risks, benefits and alternatives have been discussed with the patient who wishes to proceed with surgery. Status: Acute Qualifiers: Abdominal location: right upper quadrant Qualified Code(s): R10.11 - Right upper quadrant pain Attestations Medical Necessity Statement*: Abdominal pain requiring continued hospital stay for 1 more night Coding Level of Care Code Acute It Applications Developer for [facility] Fwd Diagnoses Abdominal pain R10.11 Abdominal location: right upper quadrant
--- NOTE | 2022-02-11 12:41 | ANE.PACU2 ---
Inpatient post-anesthesia follow up: Airway intact: Yes Vital signs: Temperature 97.7 F Pulse Rate 91 Respiratory Rate 18 Blood Pressure 124/75 Pulse Oximetry 97 Oxygen Delivery Me thod Room Air Oxygen Flow Rate Fraction of Inspir ed Oxygen Hydration adequate: Yes Nausea and vomiting: No Pain level: 1 Mental status: Baseline
--- NOTE | 2022-02-11 15:29 | NM_ITS ---
WS: [id number] NUCLEAR MEDICINE HIDA SCAN WITH GALLBLADDER EJECTION FRACTION HISTORY: ruq abd pain COMPARISON: CT 02/10/2022 TECHNIQUE: The patient was intravenously injected with 8.1 mCi of TC99m Mebrofenin. Immediate imaging over the right upper quadrant was followed by 5 minute image and additional images for a total of 60 minutes. Normal uptake of radiotracer throughout the liver. Activity identified in the gallbladder at 15 minutes and well distended by 60 minutes. Activity in the proximal small bowel was seen by 15 minutes. Good washout of the radiotracer from the liver by 60 minutes. There is still radiotracer within the liver at 60 minutes but nearly completely washed out. The patient then drank 8 ounces of Ensure Plus. Ejection fraction at 60 minutes was 95%. Normal GB ej ection fraction is 35-75%. Post fatty meal symptoms: None. NM/NM hepatobiliary w phar* [id number] IMPRESSION: 1. Normal HIDA scan. No cystic or common bile duct obstruction. 2. Normal gallbladder ejection fraction.
[2022-02-11] MEDS: D5-NS 0.45% + KCL 20 mEq 20 MEQ/1,000 ML BAG 100 MEQ IV (15:36)
[2022-02-11] MEDS: piperacillin-tazobactam 3.375 GM in sodium chloride 0.9% (plus) 50 ML IV ×2 (15:36→21:32)
[2022-02-11] MEDS: pantoprazole 40 mg SDV IVP (15:37)
[2022-02-11] MEDS: nicotine 21 mg Patch 1 PATCH TRANSDERMA (16:56)
[2022-02-11] MEDS: enoxaparin 40 mg/0.4 mL Syringe SUBCUT (16:58)
[2022-02-12] VITALS: BP 120/80; PULSE 89; RESP 14; TEMP 36.6; O2SAT 98
[2022-02-12] MEDS: D5-NS 0.45% + KCL 20 mEq 20 MEQ/1,000 ML BAG 100 MEQ IV ×2 (00:59→10:31)
[2022-02-12 01:52] LABS: Basophils % 0.5 %; Eosinophils # 0.2 10^3/uL (0.0-0.8); Eosinophils % 2.2 %; Hematocrit 37.5 % (42.0-52.0); Hemoglobin 12.3 g/dL (11.7-16.6); Lymphocytes # 2.1 10^3/uL (0.8-4.8); Lymphocytes % 24.7 %; Mean Corpuscular HGB Conc 32.8 g/dL (30.0-36.0); Mean Corpuscular Hemoglobin 32.9 pg (28.0-34.0); Mean Corpuscular Volume 100.3 fl (80-94); Mean Platelet Volume 11.8 fL (7.4-10.4); Monocytes # 0.4 10^3/uL (0.2-0.9); Monocytes % 4.6 %; Neutrophils # 5.73 10^3/uL (1.8-7.7); Neutrophils % 67.6 %; Nucleated Red Blood Cells % 0 %; Platelet Count 128 10^3/cmm (130-400); Red Blood Count 3.74 10^6/uL (4.1-5.3); Red Cell Distribution Width 12.4 % (12.1-15.1); White Blood Count 8.5 10^3/uL (4.0-10.0)
[2022-02-12 02:11] LABS: Slide Review Slide Review Perform
[2022-02-12 02:13] LABS: Alanine Aminotransferase 123 U/L (0-41); Albumin Level 2.9 g/dL (3.5-5.2); Alkaline Phosphatase 249 IU/L (40-130); Anion Gap 10.8 (5-19); Aspartate Amino Transferase 132 U/L (0-40); Blood Urea Nitrogen 3 mg/dL (6-20); Calcium 8.5 mg/dL (8.5-10.5); Carbon Dioxide 28 mmol/L (22-29); Chloride 96 mmol/L (98-107); Globulin 3.2 g/dL (1.3-4.6); Glomerular Filtration Rate 111.3 mL/min (90-130); Glucose 101 mg/dL (65-115); Lipase 75 U/L (13-60); Osmolality Calculated 269 mOsm/kg (285-295); Potassium 3.8 mmol/L (3.5-5.1); Sodium 131 mmol/L (136-145); Total Bilirubin 1.4 mg/dL (0.15-1.2); Total Protein 6.1 g/dL (6.6-8.7)
[2022-02-12 04:00] VITALS: BP 114/78; PULSE 79; RESP 14; TEMP 36.5; O2SAT 97
[2022-02-12] MEDS: piperacillin-tazobactam 3.375 GM in sodium chloride 0.9% (plus) 50 ML IV (05:11)
--- NOTE | 2022-02-12 05:53 | PC.NURSE ---
SHIFT SUMMARY Has had a good night. Requested pain medicine in the evening and was given dose of IV Morphine. Says abd pain is much better and denies any nausea with liquids. Abdomen is soft and reports still some tenderness in right upper abd. IV fluids infusing at 100ml/hr rate and receiving IV antibiotics as ordered. Is hoping to go home today. Pleasant and talkative. No signs withdrawals with CIWA assessments
[2022-02-12 07:44] VITALS: BP 113/70; PULSE 102; RESP 18; TEMP 37.6; O2SAT 97
[2022-02-12] MEDS: nicotine 21 mg Patch 1 PATCH TRANSDERMA (09:04)
[2022-02-12] MEDS: acetaminophen 325 mg Tablet 650 MG PO (09:04)
[2022-02-12] MEDS: pantoprazole 40 mg SDV IVP (09:05)
[2022-02-12] MEDS: docusate sodium 100 mg Capsule PO (09:05)
--- NOTE | 2022-02-12 11:13 | P.PN_ITS ---
Subjective Subjective: Patient was seen and examined this morning, status post EGD: Suggestive of gastritis, on Protonix. Medications: Medication Review Details: Generic Name Dose Route Start Last Admin Trade Name Freq PRN Reason Stop Dose Admin Acetaminophen 650 mg 02/10/22 15:38 02/11/22 03:05 Acetaminophen 32 5 Mg Tablet PO 650 mg Q6H PRN Administration Mild/Mod Pain Or Temp >/= 101 Docusate Sodium 100 mg 02/10/22 18:00 02/11/22 08:55 Docusate Sodium 100 Mg Capsule PO 100 mg BID TOÑA Administration Enoxaparin Sodium 40 mg 02/10/22 16:30 02/10/22 17:30 Enoxaparin 40 Mg /0.4 Ml Syringe SUBCUT 40 mg Q24H TOÑA Administration Famotidine 20 mg 02/10/22 17:00 02/11/22 06:05 Famotidine 20 Mg /2 Ml Inj IVP 20 mg Q12H TOÑA Administration Sodium Chloride 1,000 mls @ 100 m ls/hr 02/10/22 19:50 02/11/22 06:05 Sodium Chloride 0.9% IV 100 mls/hr .Q10H TOÑA Administration Morphine Sulfate 4 mg 02/10/22 19:50 02/11/22 08:53 Morphine 4 Mg/Ml Sdv 1 Ml IVP 4 mg Q4H PRN Administration SEVERE PAIN Vitals/I&O/Wt Last Vital Signs Temp 99.6 F 02/12/22 07:44 Pulse 102 H 02/12/22 07:44 Resp 18 02/12/22 07:44 BP 113/70 02/12/22 07:44 Pulse Ox 97 02/12/22 07:44 02/11/22 02/12/22 02/12/22 22:59 06:59 14:59 Intake Total 1367 / 8 1188.333 / 3106.333 1120 / 1120 Balance 1368 / 1918 1188.333 / 3106.333 1120 / 1120 Weight last 48 hrs Weight 61.235 kg Weight 61.235 kg Physical Exam Const: COMMON NORMALS: patient oriented x3 HENMT: COMMON NORMALS: normocephalic, atraumatic, hearing grossly normal bilaterally and external ears normal HEAD & SCALP: normocephalic and atraumatic EXTERNAL EAR: Yes external ears normal Eye: COMMON NORMALS: no scleral icterus GENERAL EYE: appearance normal, both eyes and all related structures Chest: COMMONS NORMALS: normal inspection of the chest and normal palpation of entire chest wall CHEST: Yes Symmetrical chest wall rise Resp: COMMON NORMALS: normal respiratory effort, No retractions, No use of accessory muscles and clear to auscultation bilaterally EFFORT & INSPECTION: Yes symmetric chest movement AUSCULTATION: clear to auscultation bilaterally Cardio: COMMON NORMALS: regular rate, regular rhythm, S1 normal heart sound p resent, S2 normal heart sound present, No gallops present (Cardio), No murmurs present (Cardio), No rub (Cardio) and Peripheral pulses 2+ throughout RATE: regular rate RHYTHM: regular rhythm HEART SOUNDS: S1 normal heart sound present and S2 normal heart sound present PERIPHERAL PULSES: Peripheral pulses 2+ throughout GI: COMMON NORMALS: Normal to inspection, nondistended, normoactive bowel sounds present, No hepatosplenomegaly present and no masses AUSCULTATION: Yes normoactive bowel sounds PALPATION: Yes No hepatosplenomegaly present RECTAL EXAM: Yes deferred OTHER: Right upper quadrant as well as lower quadrant tenderness present, no guarding no rigidity no rebound tenderness Extremity: COMMON NORMALS: no clubbing, cyanosis or edema and no pedal edema Neuro: COMMON NORMALS: patient oriented x3 Data : 02/12/22 01:32 02/12/22 01:32 A&P Assessment and plan (1) Alcohol abuse: Status: Acute (2) Cholecystitis: Status: Acute (3) Transaminitis: Status: Acute (4) Duodenitis: Status: Acute Plan Assessment: Alcohol abuse: Currently not in withdrawal Monitor [facility] protocol Continue IV hydration Cholecystitis: HIDA scan:Normal HIDA scan. No cystic or common bile duct obstruction. Normal gallbladder ejection fraction. On antibiotics Surgery on board #Alcoholic gastritis: On Protonix Duodenitis : On antibiotics Transaminitis: Likely secondary to alcohol abuse, possible passed gallstone Hepatitis B surface antigen negative Hepatitis B core total antibody nonreactive Hep C antibody nonreactive Hepatitis B surface antibody 3.5 Continue to monitor CMP CODE STATUS: Full code DVT prophylaxis: On Lovenox Attestations Medical Necessity Statement*: Per primary team Coding Level of Care Code Acute Film Cleaner for [facility] Fw Diagnoses Alcohol abuse F10.10 Cholecystitis K81.9 Transaminitis R74.01 Duodenitis K29.80
[2022-02-12 11:17] VITALS: BP 133/76; PULSE 87; RESP 18; TEMP 36.7; O2SAT 98
[2022-02-12 13:44] VITALS: BP 133/76; PULSE 87; RESP 18; TEMP 36.7; O2SAT 98
--- NOTE | 2022-02-27 08:15 | P.DS_ITS ---
Discharge Providers Date of Admission: 02/10/22 15:38 Date of Discharge: February 27, 2022 Attending Provider at Admission: Raza Haq MD Attending Provider at Discharge: Raza Haq MD Diagnoses at Discharge Discharge Diagnosis (1) Alcohol abuse: Status: Acute (2) Cholecystitis: Status: Resolved (3) Transaminitis: Status: Resolved (4) Duodenitis: Status: Resolved Reason for Visit Reason for Visit: abdominal pain Brief History: Larry Gross is a 31 year old male who presented to the ER yesterday with severe epigastric and right upper quadrant pain associated with nausea and couple of episodes of vomiting.? The pain has been constant, patient has never had a similar episode in the past and he is no longer vomiting.? No fevers or chills.? Denies any constipation or diarrhea.? He states that he drinks half pint of whiskey every night.He was noted to have significant inflammation around the gallbladder, duodenum, hepatic flexure and pancreatic head and therefore is admitted to the hospital. He also had elevated liver enzymes with total bilirubin of 1.4, AST 380, ALT 206 but WBC and lipase were normal. Hospital Course Hospital Course He was admitted to the hospital for observation. He had a HIDA scan on 02/11/2022 which was normal with normal ejection fraction. He underwent EGD which showed mild nonerosive gastritis but no other abnormalities. Other work-up: Hepatitis B surface antigen negative Hepatitis B core total antibody nonreactive Hep C antibody nonreactive Hepatitis B surface antibody 3.5 By 02/12/2022 his LFTs were trending down though there was still elevated, his WBC and lipase was normal.Patient is overall feeling better, tolerating a diet, his vital signs are stable. He was discharged home with the plan of repeat LFTs and follow-up in 1 week Physical Exam Narrative: Abdomen: Soft, nontender, non distended Discharge Data Studies Completed and Pending Completed Studies During Hospitalization Category Date Time Status CT abdomen pelvis w con* [id number] Urgent Cat Scan 02/10/22 12:30 Completed NM hepatobiliary w phar* [id number] Routine Nuc Med 02/11/22 15:29 Completed Radiology Impressions Abdomen/Pelvis CT 02/10/22 12:30 IMPRESSION: 1. Significant inflammation noted in the RIGHT upper quadrant with fluid and mesenteric edema. The area of inflammation involves the gallbladder, duodenal C- loop, hepatic flexure and the pancreatic head. There is a large amount of edema and mesenteric stranding. Due to the extensive process differential includes acute cholecystitis, colitis, pancreatitis and duodenitis. 2. Recommend follow-up gallbladder ultrasound to evaluate for stones or sludge. The common bile duct by CT appears normal. 3. The appendix is visualized and does extend retrocecal and is closely associated with the inflammation but there is no dilatation. Appendicitis is not favored. 4. Area of decreased attenuation in the central superior liver is probably from hepatic steatosis. Recommend follow-up nonemergent MRI liver with and without contrast. Hepatobiliary Scan Nuclear Medicine 02/11/22 15:29 IMPRESSION: 1. Normal HIDA scan. No cystic or common bile duct obstruction. 2. Normal gallbladder ejection fraction. Laboratory Results WBC 8.5 10^3/uL (4.0-10.0) 02/12/22 01:32 RBC 3.74 10^6/uL (4.1-5.3) L 02/12/22 01:32 Hgb 12.3 g/dL (11.7-16.6) 02/12/22 01:32 Hct 37.5 % (42.0-52.0) L 02/12/22 01:32 MCV 100.3 fl (80-94) H 02/12/22 01:32 MCH 32.9 pg (28.0-34.0) 02/12/22 01:32 MCHC 32.8 g/dL (30.0-36.0) 02/12/22 01:32 RDW 12.4 % (12.1-15.1) 02/12/22 01:32 Plt Count 128 10^3/cmm (130-400) L 02/12/22 01:32 MPV 11.8 fL (7.4-10.4) H 02/12/22 01:32 Neut % (Auto) 67.6 % 02/12/22 01:32 Lymph % (Auto) 24.7 % 02/12/22 01:32 [place] % (Auto) 4.6 % 02/12/22 01:32 Eos % (Auto) 2.2 % 02/12/22 01:32 Baso % (Auto) 0.5 % 02/12/22 01:32 Neut # (Auto) 5.73 10^3/uL (1.8-7.7) 02/12/22 01:32 Lymph # (Auto) 2.1 10^3/uL (0.8-4.8) 02/12/22 01:32 [place] # (Auto) 0.4 10^3/uL (0.2-0.9) 02/12/22 01:32 Eos # (Auto) 0.2 10^3/uL (0.0-0.8) 02/12/22 01:32 Baso # (Auto) 0.0 10^3/uL (0.0-0.1) 02/12/22 01:32 Nucleated RBC % (auto) 0 % 02/12/22 01:32 Total Counted 100 (0-100) 02/10/22 12:44 Atypical Lymphs % 4.0 % (0-5) 02/10/22 12:44 Absolute Neutrophils 5.8 10^3/cmm (1.4-6.5) 02/10/22 12:44 Segmented Neutrophils 80 % 02/10/22 12:44 Abs Segm Neuts (Man) 5.8 10/cmm (1.6-7.1) 02/10/22 12:44 Band Neutrophils 0.0 % 02/10/22 12:44 Abs Band Neuts (Man) 0.0 10^3/cmm (0.0-1.2) 02/10/22 12:44 Absolute Lymphocytes 1.2 10^3/cmm (1.2-3.4) 02/10/22 12:44 Lymphocytes (Manual) 13 % 02/10/22 12:44 Monocytes (Manual) 1.0 % 02/10/22 12:44 Absolute Monocytes 0.1 10^3/cmm (0.1-0.6) 02/10/22 12:44 Eosinophils (Manual) 2 % 02/10/22 12:44 Absolute Eosinophils 0.1 10^3/cmm (0.0-0.7) 02/10/22 12:44 Basophils (Manual) 0.0 % 02/10/22 12:44 Absolute Basophils 0.0 10^3/cmm (0.0-0.2) 02/10/22 12:44 Nucleated RBCs # 0.0 /100WBC 02/12/22 01:32 Platelet Estimate Normal (Normal) 02/10/22 12:44 Sodium 131 mmol/L (136-145) L 02/12/22 01:32 Potassium 3.8 mmol/L (3.5-5.1) 02/12/22 01:32 Chloride 96 mmol/L (98-107) L 02/12/22 01:32 Carbon Dioxide 28 mmol/L (22-29) 02/12/22 01:32 Anion Gap 10.8 (5-19) 02/12/22 01:32 BUN 3 mg/dL (6-20) L 02/12/22 01:32 Creatinine 0.8 mg/dL (0.7-1.2) 02/12/22 01:32 GFR Calculation 111.3 mL/min (90-130) 02/12/22 01:32 Glucose 101 mg/dL (65-115) 02/12/22 01:32 Calculated Osmolality 269 mOsm/kg (285-295) L 02/12/22 01:32 Lactic Acid 1.2 mmol/L (0.5-2.2) 02/11/22 02:55 Calcium 8.5 mg/dL (8.5-10.5) 02/12/22 01:32 Magnesium 1.6 mg/dL (1.7-2.3) L 02/11/22 02:55 Total Bilirubin 1.4 mg/dL (0.15-1.2) H 02/12/22 01:32 AST 132 U/L (0-40) H 02/12/22 01:32 ALT 123 U/L (0-41) H 02/12/22 01:32 Alkaline Phosphatase 249 IU/L (40-130) H 02/12/22 01:32 Total Protein 6.1 g/dL (6.6-8.7) L 02/12/22 01:32 Albumin 2.9 g/dL (3.5-5.2) L 02/12/22 01:32 Globulin 3.2 g/dL (1.3-4.6) 02/12/22 01:32 Lipase 75 U/L (13-60) H 02/12/22 01:32 Procalcitonin 0.26 ng/mL (0-0.5) 02/11/22 02:55 Ethyl Alcohol < 10 mg/dL (0-10) 02/10/22 14:30 Hep Bs Antigen Non-reactive (Nonreactive) 02/11/22 02:55 Hep Bs Antibody 3.5 (11.5-1000) L 02/11/22 02:55 Hep B Core Total Ab Non-reactive (Nonreactive) 02/11/22 02:55 Hepatitis C Antibody Non-reactive (Nonreactive) 02/11/22 02:55 Vitals Last Vital Signs Temp 98.0 F 02/12/22 13:44 Pulse 87 02/12/22 13:44 Resp 18 02/12/22 13:44 BP 133/76 02/12/22 13:44 Pulse Ox 98 02/12/22 13:44 Discharge Plan Discharge Patient Disposition: Home Condition: Stable Prescriptions: New Protonix 40 mg tablet,delayed release (DR/EC) 40 mg PO DAILY 42 Days Qty: 60 0RF Discharge Orders: Discharge Order (Routine); Ordered 02/12/22 Ordered By: Raza Haq Referrals: Raza Haq MD [Physician] - 02/18/22 1:50 pm (with labs and MRI liver ) Discharge Diet: Advance as tolerated Discharge Activity: Resume usual activity Patient Instructions: Metronidazole (By mouth), Ondansetron (By mouth), Levofloxacin (By mouth), Pantoprazole (By mouth), Cholecystitis (ED), GI Discharge Instructions, Opioid Safety Discharge Attestations Time Spent in Discharge Care*: less than 30 min Quality Metrics Clinical Quality Measures [ No reported AMI, CVA or VTE this stay] Coding Level of Care Code Acute Chg [facility] note Diagnoses Alcohol abuse F10.10 Cholecystitis K81.9 Transaminitis R74.01 Duodenitis K29.80
== END 2022-02-12 13:30 | disposition home or self-care (01) ==
LOC: ER 16:25 → MEDSURG 18:57
PROVIDERS: Internal Medicine; Admitting Provider Surgery; Emergency Provider Emergency Medicine; Visit Provider Surgery
PROC: 0DJ08ZZ Inspection of Upper Intestinal Tract, Via Natural or Artificial Opening Endoscopic (ICD-10-PCS; CPT 43235; principal; 2022-02-11 12:00)
DX: F10.10 Alcohol abuse, uncomplicated (principal); K81.9 Cholecystitis, unspecified; R74.01 Elevation of levels of liver transaminase levels; K29.80 Duodenitis without bleeding; K29.70 Gastritis, unspecified, without bleeding; F17.210 Nicotine dependence, cigarettes, uncomplicated
CPT/HCPCS: 36415; 43235; 74177; 78227; 80053; 80307; 83605; 83690; 83735; 84145; 85007; 85025; 86704; 86706; 86803; 87340; 96365; 96372; 96375; 99285; A9537; C9113; G0378; J1170; J1650; J2270; J2405; J2543; J2704; J3411; J3490; J7030; Q9967

== ENCOUNTER 2023-01-12 19:45 | Emergency (ER) | payer MEDICAID, SELFPAY ==
[2023-01-12 20:01] VITALS: BP 148/96; PULSE 80; RESP 20; TEMP 36.4; O2SAT 97; BMI 21.7
--- NOTE | 2023-01-12 20:30 | W.ED.DENTAL ---
HPI - Dental/Oral General: Chief complaint: Dental/Oral Stated complaint: Hit In Mouth with Baseball Time Seen by Provider: 01/12/23 20:29 History of Present Illness: 32-year-old male patient comes in today for injuries to the face. Patient was struck by a baseball in his upper lip and jaw. Patient had his left central incisor knocked out , and the right incisor shifted. Patient denies any loss of consciousness. Patient reports a history of seizures. Patient appears nontoxic. Patient appears no acute distress. Review of Systems General: Reports: 10 or more systems reviewed and unremarkable except in HPI and below ENMT: Reports: other (Avulsion of left upper incisor, mouth lacerations) Card: Denies: chest pain Resp: Denies: dyspnea GI: Denies: nausea or vomiting Musc: Denies: neck pain Skin/Breast: Reports: other (Inner mouth laceration) Neuro: Denies: headache(s) PFSH ED PFSH: Medical History No pertinent past medical history Social History Smoking and tobacco status: current every day smoker Physical Exam Const: COMMON NORMALS: alert HENMT: COMMON NORMALS: normocephalic HEAD & SCALP: normocephalic Neck/C-Spine: COMMON NORMALS: full ROM CERVICAL SPINE: No Cervical spine tenderness Chest: COMMONS NORMALS: normal inspection of the chest Resp: COMMON NORMALS: normal respiratory effort and clear to auscultation bilaterally AUSCULTATION: clear to auscultation bilaterally Cardio: COMMON NORMALS: regular rate and regular rhythm RATE: regular rate RHYTHM: regular rhythm GI: COMMON NORMALS: Soft to palpation PALPATION: Yes Soft to palpation Extremity: COMMON NORMALS: full ROM Neuro: SENSORIUM/ORIENTATION: Yes alert Skin: COMMON NORMALS: turgor normal GENERAL SKIN EXAM: turgor normal Procedures Nerve Block Nerve Block 1: Local Anesthetic: lidocaine 1% Amount of anesthesia used (mL): 4 Intraoral Nerve Block: superior alveolar Procedure Successful: Yes Patient Tolerated Procedure: well and no complications Course ED course: 2114, displaced right central incisor was reduced into the socket, avulsed left central incisor was cleaned with saline and placed back into the socket successfully. Patient was instructed to avoid hard foods and avoid pushing on the tooth. Patient reported understanding. Patient be sent to CT for further evaluation of fracture of the jaw. Vital Signs: Vital signs: Vital Signs Temperature 97.5 F L 01/12/23 20:01 Pulse Rate 80 01/12/23 20:01 Respiratory Rate 18 01/12/23 21:07 Blood Pressure 148/96 01/12/23 20:01 Pulse Oximetry 97 01/12/23 20:01 Oxygen Delivery Me thod Room Air 01/12/23 20:01 MDM - Dental/Oral Medical Decision Making Patient came in for injury to the mouth when a baseball struck him in the upper lip. Patient having avulsed left central incisor, and the displaced right incisor. Airway was open. There was some oral lacerations were noted. No involvement of the vermilion border was noted. Some bruising and swelling was noted. Differential diagnosis includes but not limited to fracture, avulsed tooth, lacerations of the oral mucosa. Under dental block both central incisors were placed back into the socket. No palpable fractures were noted. No significant bleeding was noted. Differential diagnosis includes fracture of the jaw, avulsed tooth, contusions, mucosal lacerations. CT of the facial bones noted no fractures. Patient was recommended to gently swish the mouth with warm water. Avoid pressure to the teeth. Follow-up with dentist in the morning. Patient was started on Augmentin twice a day for the next 7 days. Patient was recommended use acetaminophen and ibuprofen to control pain. Patient was recommended use hydrocodone for severe pain. Patient reported understanding of care plan and need for follow-up or return to the ER. Lab Data Radiology Impressions Face CT 01/12/23 21:20 IMPRESSION: No acute findings. Discharge Plan Discharge Patient Disposition: Home Clinical Impression: Avulsion of tooth Qualifiers: Encounter type: initial encounter Qualified Code(s): S03.2XXA - Dislocation of tooth, initial encounter Laceration of mouth Qualifiers: Encounter type: initial encounter Qualified Code(s): S01.512A - Laceration without foreign body of oral cavity, initial encounter Condition: Stable Prescriptions: New hydrocodone-acetaminophen 5-325 mg tablet 1 tab PO Q6H PRN (Reason: pain) Qty: 12 0RF amoxicillin-pot clavulanate 875-125 mg tablet 1 tab PO BID Qty: 14 0RF Discharge Orders: Discharge ED (Routine); Ordered 01/12/23 Ordered By: Harry Reeves Discharge Diet: Usual diet Discharge Activity: Increase activity as tolerated Patient Instructions: Acute Dental Trauma (ED) Activity Restrictions/Additional Instructions: Gently rinse mouth with warm water. Avoid pressure to the 2 front teeth that were displaced. Take antibiotic as directed. Use acetaminophen and ibuprofen to control pain. Use hydrocodone for severe pain. Follow-up with dentist as soon as possible. Return to ED for new concerns. Coding Level of Care Code ED Sustainable Agriculture Specialist for Jemma Antunez
[2023-01-12] MEDS: ondansetron 2 mg/ML SDV 2 mL 4 MG IM (21:06)
[2023-01-12 21:07] VITALS: RESP 18
[2023-01-12] MEDS: morphine 4 mg/mL SDV 1 mL IM (21:07)
[2023-01-12] MEDS: LORazepam 2 mg/mL INJ 1 mL 1 MG IM (21:17)
--- NOTE | 2023-01-12 21:20 | CTR_ITS ---
PROCEDURE INFORMATION: Exam: CT Maxillofacial Without Contrast Exam date and time: 01/12/2023 9:37 PM Age: 32 years old Clinical indication: Injury or trauma; Other: Baseball to face; Blunt trauma (contusions or hematomas); Lip/oral cavity; Not specified; Patient HX: Patient struck in the mouth by a baseball. ; Additional info: Trauma face TECHNIQUE: Imaging protocol: Computed tomography of the face without contrast. Radiation optimization: All CT scans at this facility use at least one of these dose optimization techniques: automated exposure control; mA and/or kV adjustment per patient size (includes targeted exams where dose is matched to clinical indication); or iterative reconstruction. REPORTING DATA: Count of CT and Cardiac NM exams in prior 12 months: This patient has received [address] and 0 known cardiac nuclear medicine studies in the 12 months prior to the current study. COMPARISON: No relevant prior studies available. RADIATION DOSE METRICS: Total DLP (mGy-cm): 572.38 FINDINGS: Orbital cavities: Orbits are normal. Globes are unremarkable. Bones/joints: No acute fracture. Paranasal sinuses: Normal. No air-fluid levels. Soft tissues: Upper lip laceration/contusion. CT/CT facial bones wo con* [id number] IMPRESSION: No acute findings.
[2023-01-12] MEDS: lidocaine 1% INJ 10 mL (per mL) INJECTION (21:45)
[2023-01-12] MEDS: amoxicillin-clav 875-125 mg Tablet 1 TAB PO (21:45)
[2023-01-12] MEDS: HYDROcodone-acetaminophen 5-325 mg Tablet 2 TAB PO (22:34)
--- NOTE | 2023-01-12 22:34 | PC.NURSE ---
Pt sent home with two 5-325mg hydrocodone tablets to take per physicians orders.
[2023-01-12 22:35] VITALS: BP 149/99; PULSE 103; O2SAT 97
--- NOTE | 2023-01-16 12:23 | DCPLANNER ---
manager of internal audit called patient due to no primary care physician - no answer at this time.
== END 2023-01-12 22:36 | disposition home or self-care (01) ==
PROVIDERS: Emergency Provider Nurse Practitioner Family
DX: S03.2XXA Dislocation of tooth, initial encounter (principal); S01.512A Laceration without foreign body of oral cavity, initial encounter; F17.210 Nicotine dependence, cigarettes, uncomplicated; W21.03XA Struck by baseball, initial encounter
CPT/HCPCS: 64400; 70486; 96372; 99284; J2060; J2270; J2405

== ENCOUNTER → 2023-06-11 10:59 | Outpatient (BNVA) | payer MEDICAID, SELFPAY | PROVIDERS: Visit Provider Nurse Practitioner Family | DX: R05.9 Cough, unspecified (principal); J06.9 Acute upper respiratory infection, unspecified | CPT/HCPCS: 87071; 87400; 87880 ==

== ENCOUNTER 2023-10-25 16:46 | Emergency (ER) | payer MEDICAID, SELFPAY ==
[2023-10-25] VITALS (7 sets, daily range): BP systolic 122–155; BP diastolic 92–117; PULSE 77–100; RESP 14–21; TEMP 36.4; O2SAT 98–100; BMI 21.7
--- NOTE | 2023-10-25 17:04 | W.ED.WEAKNES ---
Documented by User: DEWEY Mazariegos 10/25/23 19:19 HPI - Weakness General: Chief complaint: Weakness Stated complaint: abd pain, back pain Time Seen by Provider: 10/25/23 17:00 History of Present Illness: 33-year-old male patient comes in today with complaints of abdominal pain and nausea and vomiting. Patient was diagnosed with a upper respiratory infection about 5 days ago and was started on azithromycin and prednisone. Patient today started having abdominal pain with nausea and vomiting. Patient appears nontoxic. Patient appears in mild to moderate pain. Patient denies any chronic medical problems. Patient does use alcohol daily along with tobacco and marijuana smoking. Associated symptoms: Reports nausea and vomiting Review of Systems General: Reports: 10 or more systems reviewed and unremarkable except in HPI and below GI: Reports: abdominal pain, nausea and vomiting [facility] ED PFSH: Medical History No pertinent past medical history Social History Smoking and tobacco/nicotine status: current every day tobacco/nicotine user Physical Exam Const: COMMON NORMALS: alert HENMT: COMMON NORMALS: normocephalic HEAD & SCALP: normocephalic Neck/C-Spine: COMMON NORMALS: full ROM Chest: COMMONS NORMALS: normal inspection of the chest Cardio: COMMON NORMALS: regular rate and regular rhythm RATE: regular rate RHYTHM: regular rhythm GI: COMMON NORMALS: Soft to palpation PALPATION: Yes Soft to palpation and Yes Tenderness to palpation present (GI) Back/Pelvis: COMMON NORMALS: thoracic and lumbar spine normal to inspection Extremity: COMMON NORMALS: normal to inspection Neuro: SENSORIUM/ORIENTATION: Yes alert Skin: COMMON NORMALS: turgor normal GENERAL SKIN EXAM: turgor normal Course Vital Signs: Vital signs: Vital Signs Temperature 97.6 F 10/25/23 16:55 Pulse Rate 100 10/25/23 19:16 Respiratory Rate 20 H 10/25/23 19:13 Blood Pressure 122/96 10/25/23 19:16 Pulse Oximetry 99 10/25/23 19:16 Oxygen Delivery Me thod Room Air 10/25/23 19:11 MDM - Weakness Medical Decision Making 33-year-old male patient comes in today with generalized abdominal pain with nausea and vomiting. On exam bowel sounds are present. Abdomen is soft with some mild tenderness. Lungs are clear to auscultation. Posterior pharynx erythematous. Bilateral TMs are normal. Differential diagno CBC was unremarkable. CMP noted some elevation in bilirubin at 3.1, AST's was 509, ALT is 296, alkaline phos 304, and lipase 461. Gallbladder ultrasound was unremarkable. CT of the abdomen pelvis noted inflammation of the pancreas and worsening fatty liver. Differential diagnosis includes but not limited to pancreatitis, constipation, colitis, gastritis, dehydration, viral syndrome. Patient was treated for pancreatitis with IV fluids x 2 L, patient was able to tolerate oral fluids. Patient was discharged home with antiemetics and pain medication. Lab Data 10/25/23 17:09 10/25/23 17:09 Radiology Impressions Chest X-Ray 10/25/23 17:13 IMPRESSION: Clear lungs. Abdomen/Pelvis CT 10/25/23 17:39 IMPRESSION: 1. Findings suggestive of acute pancreatitis. Correlation with serum lipase is recommended. 2. Worsening hepatic steatosis with hepatomegaly. Consider correlation with clinical and laboratory findings for steatohepatitis. The findings were verbally communicated by telephone with HARRY Rice at 6:55 PM SYSTEM SAFETY MANAGER on 10/25/2023. The findings were acknowledged and understood. Gallbladder Ultrasound 10/25/23 17:39 IMPRESSION: 1. No cholelithiasis or sonographic evidence of acute cholecystitis. Laboratory Results WBC 4.98 10^3/uL (3.29-11.43) 10/25/23 17:09 RBC 4.40 10^6/uL (3.85-5.65) 10/25/23 17:09 Hgb 14.80 g/dL (11.27-16.99) 10/25/23 17:09 Hct 41.0 % (37-53) 10/25/23 17:09 MCV 93.2 fl (82-101) 10/25/23 17:09 MCH 33.6 pg (27-33) H 10/25/23 17:09 MCHC 36.1 g/dL (30-55) 10/25/23 17:09 RDW 13.0 % (12.1-15.1) 10/25/23 17:09 Plt Count 123 10^3/cmm (157-399) L 10/25/23 17:09 MPV 12.3 fL (7.4-10.4) H 10/25/23 17:09 Neut % (Auto) 65.1 % 10/25/23 17:09 Lymph % (Auto) 30.7 % 10/25/23 17:09 [place] % (Auto) 3.2 % 10/25/23 17:09 Eos % (Auto) 0.2 % 10/25/23 17:09 Baso % (Auto) 0.6 % 10/25/23 17:09 Neut # (Auto) 3.24 10^3/uL (1.8-7.7) 10/25/23 17:09 Lymph # (Auto) 1.5 10^3/uL (0.8-4.8) 10/25/23 17:09 [place] # (Auto) 0.2 10^3/uL (0.2-0.9) 10/25/23 17:09 Eos # (Auto) 0.0 10^3/uL (0.0-0.8) 10/25/23 17:09 Baso # (Auto) 0.0 10^3/uL (0.0-0.1) 10/25/23 17:09 Nucleated RBC % (auto) 0 % 10/25/23 17:09 Nucleated RBCs # 0.0 /100WBC 10/25/23 17:09 Sodium 131 mmol/L (136-145) L 10/25/23 17:09 Potassium 3.8 mmol/L (3.5-5.1) 10/25/23 17:09 Chloride 91 mmol/L (98-107) L 10/25/23 17:09 Carbon Dioxide 26 mmol/L (22-29) 10/25/23 17:09 Anion Gap 17.8 (5-19) 10/25/23 17:09 BUN 14 mg/dL (6-20) 10/25/23 17:09 Creatinine 0.7 mg/dL (0.7-1.2) 10/25/23 17:09 GFR Calculation 128.3 mL/min (90-130) 10/25/23 17:09 Glucose 110 mg/dL (65-115) 10/25/23 17:09 Calculated Osmolality 273 mOsm/kg (285-295) L 10/25/23 17:09 Calcium 8.7 mg/dL (8.5-10.5) 10/25/23 17:09 Total Bilirubin 3.1 mg/dL (0.15-1.2) H 10/25/23 17:09 AST 509 U/L (0-40) H 10/25/23 17:09 ALT 296 U/L (0-41) H 10/25/23 17:09 Alkaline Phosphatase 304 U/L (40-130) H 10/25/23 17:09 Total Protein 7.2 g/dL (6.6-8.7) 10/25/23 17:09 Albumin 3.9 g/dL (3.5-5.2) 10/25/23 17:09 Globulin 3.3 g/dL (1.3-4.6) 10/25/23 17:09 Lipase 461 U/L (13-60) H 10/25/23 17:09 All radiology interpretation(s) finalized by discharge Discharge Plan Discharge Patient Disposition: Home Clinical Impression: Acute pancreatitis, Cirrhosis with alcoholism Condition: Stable Prescriptions: New hydrocodone-acetaminophen 5-325 mg tablet 1 tab PO Q6H PRN (Reason: pain) Qty: 10 0RF ondansetron 4 mg tablet,disintegrating 4 mg PO Q8H PRN (Reason: nausea and vomiting) Qty: 10 0RF No Action azithromycin 250 mg tablet See Rx Instructions PO .COMPLEX Qty: 6 0RF Rx Instructions: take 500 mg today (day 1), then 250 mg for 4 days (days 2-5) PO prednisone 20 mg tablet 20 mg PO DAILY 5 Days Qty: 5 0RF albuterol sulfate [Ventolin HFA] 90 mcg/actuation HFA aerosol inhaler 2 puff inhalation Q6H PRN (Reason: shortness of breath or wheezing) Qty: 8.5 0RF Discharge Orders: Discharge ED (Routine); Ordered 10/25/23 Ordered By: Harry Reeves Discharge Diet: Advance as tolerated Discharge Activity: Increase activity as tolerated Patient Instructions: Pancreatitis Activity Restrictions/Additional Instructions: Clear liquid diet until abdominal pain improves. Then increase diet to a bland diet. Follow-up with primary care for further instructions. Return to ED for new concerns. Coding Level of Care Code ED Locomotive Supervisor for Chg Fwd Documented by User: Dimitris Collazo, DO 10/25/23 20:14 HPI - Weakness General: Chief complaint: Weakness Stated complaint: abd pain, back pain Time Seen by Provider: 10/25/23 17:00 PFSH ED PFSH: Medical History No pertinent past medical history Social History Smoking and tobacco/nicotine status: current every day tobacco/nicotine user Course Vital Signs: Vital signs: Vital Signs Temperature 97.6 F 10/25/23 16:55 Pulse Rate 100 10/25/23 19:16 Respiratory Rate 20 H 10/25/23 19:13 Blood Pressure 122/96 10/25/23 19:16 Pulse Oximetry 99 10/25/23 19:16 Oxygen Delivery Me thod Room Air 10/25/23 19:11 MDM - Weakness Medical Decision Making 33-year-old male patient comes in today with generalized abdominal pain with nausea and vomiting. On exam bowel sounds are present. Abdomen is soft with some mild tenderness. Lungs are clear to auscultation. Posterior pharynx erythematous. Bilateral TMs are normal. Differential diagno CBC was unremarkable. CMP noted some elevation in bilirubin at 3.1, AST's was 509, ALT is 296, alkaline phos 304, and lipase 461. Gallbladder ultrasound was unremarkable. CT of the abdomen pelvis noted inflammation of the pancreas and worsening fatty liver. Differential diagnosis includes but not limited to pancreatitis, constipation, colitis, gastritis, dehydration, viral syndrome. Patient was treated for pancreatitis with IV fluids x 2 L, patient was able to tolerate oral fluids. Patient was discharged home with antiemetics and pain medication. This patient was originally seen by DEWEY Chua.? I agree with his history, evaluation, and treatment. Lab Data 10/25/23 17:09 10/25/23 17:09 Radiology Impressions Chest X-Ray 10/25/23 17:13 IMPRESSION: Clear lungs. Abdomen/Pelvis CT 10/25/23 17:39 IMPRESSION: 1. Findings suggestive of acute pancreatitis. Correlation with serum lipase is recommended. 2. Worsening hepatic steatosis with hepatomegaly. Consider correlation with clinical and laboratory findings for steatohepatitis. The findings were verbally communicated by telephone with HARRY Rice at 6:55 PM SYSTEM SAFETY MANAGER on 10/25/2023. The findings were acknowledged and understood. Gallbladder Ultrasound 10/25/23 17:39 IMPRESSION: 1. No cholelithiasis or sonographic evidence of acute cholecystitis. Laboratory Results WBC 4.98 10^3/uL (3.29-11.43) 10/25/23 17:09 RBC 4.40 10^6/uL (3.85-5.65) 10/25/23 17:09 Hgb 14.80 g/dL (11.27-16.99) 10/25/23 17:09 Hct 41.0 % (37-53) 10/25/23 17:09 MCV 93.2 fl (82-101) 10/25/23 17:09 MCH 33.6 pg (27-33) H 10/25/23 17:09 MCHC 36.1 g/dL (30-55) 10/25/23 17:09 RDW 13.0 % (12.1-15.1) 10/25/23 17:09 Plt Count 123 10^3/cmm (157-399) L 10/25/23 17:09 MPV 12.3 fL (7.4-10.4) H 10/25/23 17:09 Neut % (Auto) 65.1 % 10/25/23 17:09 Lymph % (Auto) 30.7 % 10/25/23 17:09 [place] % (Auto) 3.2 % 10/25/23 17:09 Eos % (Auto) 0.2 % 10/25/23 17:09 Baso % (Auto) 0.6 % 10/25/23 17:09 Neut # (Auto) 3.24 10^3/uL (1.8-7.7) 10/25/23 17:09 Lymph # (Auto) 1.5 10^3/uL (0.8-4.8) 10/25/23 17:09 [place] # (Auto) 0.2 10^3/uL (0.2-0.9) 10/25/23 17:09 Eos # (Auto) 0.0 10^3/uL (0.0-0.8) 10/25/23 17:09 Baso # (Auto) 0.0 10^3/uL (0.0-0.1) 10/25/23 17:09 Nucleated RBC % (auto) 0 % 10/25/23 17:09 Nucleated RBCs # 0.0 /100WBC 10/25/23 17:09 Sodium 131 mmol/L (136-145) L 10/25/23 17:09 Potassium 3.8 mmol/L (3.5-5.1) 10/25/23 17:09 Chloride 91 mmol/L (98-107) L 10/25/23 17:09 Carbon Dioxide 26 mmol/L (22-29) 10/25/23 17:09 Anion Gap 17.8 (5-19) 10/25/23 17:09 BUN 14 mg/dL (6-20) 10/25/23 17:09 Creatinine 0.7 mg/dL (0.7-1.2) 10/25/23 17:09 GFR Calculation 128.3 mL/min (90-130) 10/25/23 17:09 Glucose 110 mg/dL (65-115) 10/25/23 17:09 Calculated Osmolality 273 mOsm/kg (285-295) L 10/25/23 17:09 Calcium 8.7 mg/dL (8.5-10.5) 10/25/23 17:09 Total Bilirubin 3.1 mg/dL (0.15-1.2) H 10/25/23 17:09 AST 509 U/L (0-40) H 10/25/23 17:09 ALT 296 U/L (0-41) H 10/25/23 17:09 Alkaline Phosphatase 304 U/L (40-130) H 10/25/23 17:09 Total Protein 7.2 g/dL (6.6-8.7) 10/25/23 17:09 Albumin 3.9 g/dL (3.5-5.2) 10/25/23 17:09 Globulin 3.3 g/dL (1.3-4.6) 10/25/23 17:09 Lipase 461 U/L (13-60) H 10/25/23 17:09 Discharge Plan Discharge Patient Disposition: Home Clinical Impression: Acute pancreatitis, Cirrhosis with alcoholism Condition: Stable Prescriptions: New hydrocodone-acetaminophen 5-325 mg tablet 1 tab PO Q6H PRN (Reason: pain) Qty: 10 0RF ondansetron 4 mg tablet,disintegrating 4 mg PO Q8H PRN (Reason: nausea and vomiting) Qty: 10 0RF No Action azithromycin 250 mg tablet See Rx Instructions PO .COMPLEX Qty: 6 0RF Rx Instructions: take 500 mg today (day 1), then 250 mg for 4 days (days 2-5) PO prednisone 20 mg tablet 20 mg PO DAILY 5 Days Qty: 5 0RF albuterol sulfate [Ventolin HFA] 90 mcg/actuation HFA aerosol inhaler 2 puff inhalation Q6H PRN (Reason: shortness of breath or wheezing) Qty: 8.5 0RF Discharge Orders: Discharge ED (Routine); Ordered 10/25/23 Ordered By: Harry Reeves Discharge Diet: Advance as tolerated Discharge Activity: Increase activity as tolerated Patient Instructions: Pancreatitis Activity Restrictions/Additional Instructions: Clear liquid diet until abdominal pain improves. Then increase diet to a bland diet. Follow-up with primary care for further instructions. Return to ED for new concerns. Coding Level of Care Code ED Locomotive Supervisor for Jemma Antunez
--- NOTE | 2023-10-25 17:13 | XRR_ITS ---
PROCEDURE INFORMATION: Exam: XR Chest Exam date and time: 10/25/2023 6:06 PM Age: 33 years old Clinical indication: Patient HX: Cough; Weakness; Smoker TECHNIQUE: Imaging protocol: Radiologic exam of the chest. Views: 1 view. COMPARISON: CT abdomen pelvis w con* [id number] 02/10/2022 1:20 PM FINDINGS: Lungs: Unremarkable. No consolidation. Pleural spaces: Unremarkable. No pleural effusion. No pneumothorax. Heart/Mediastinum: Unremarkable. No cardiomegaly. Bones/joints: Chronic fracture deformity of the middle 3rd of the right clavicle. XR/XR chest 1V portable [id number] IMPRESSION: Clear lungs.
[2023-10-25] MEDS: sodium chloride 0.9% 1,000 ML 999 ML IV ×2 (17:17→18:36)
[2023-10-25 17:18] LABS: Basophils % 0.6 %; Eosinophils % 0.2 %; Lymphocytes # 1.5 10^3/uL (0.8-4.8); Lymphocytes % 30.7 %; Mean Corpuscular HGB Conc 36.1 g/dL (30-55); Mean Corpuscular Hemoglobin 33.6 pg (27-33); Mean Corpuscular Volume 93.2 fl (82-101); Mean Platelet Volume 12.3 fL (7.4-10.4); Monocytes # 0.2 10^3/uL (0.2-0.9); Monocytes % 3.2 %; Neutrophils # 3.24 10^3/uL (1.8-7.7); Neutrophils % 65.1 %; Nucleated Red Blood Cells % 0 %; Platelet Count 123 10^3/cmm (157-399); White Blood Count 4.98 10^3/uL (3.29-11.43)
[2023-10-25] MEDS: ondansetron 2 mg/ML SDV 2 mL 4 MG IVP (17:18)
[2023-10-25 17:35] LABS: Alanine Aminotransferase 296 U/L (0-41); Albumin Level 3.9 g/dL (3.5-5.2); Alkaline Phosphatase 304 U/L (40-130); Anion Gap 17.8 (5-19); Aspartate Amino Transferase 509 U/L (0-40); Blood Urea Nitrogen 14 mg/dL (6-20); Calcium 8.7 mg/dL (8.5-10.5); Carbon Dioxide 26 mmol/L (22-29); Chloride 91 mmol/L (98-107); Globulin 3.3 g/dL (1.3-4.6); Glomerular Filtration Rate 128.3 mL/min (90-130); Glucose 110 mg/dL (65-115); Osmolality Calculated 273 mOsm/kg (285-295); Potassium 3.8 mmol/L (3.5-5.1); Sodium 131 mmol/L (136-145); Total Bilirubin 3.1 mg/dL (0.15-1.2); Total Protein 7.2 g/dL (6.6-8.7)
--- NOTE | 2023-10-25 17:39 | USR_ITS ---
PROCEDURE INFORMATION: Exam: US Abdomen, Limited; Right Upper Quadrant Exam date and time: 10/25/2023 6:06 PM Age: 33 years old Clinical indication: Abdominal pain; Acute; Additional info: R/O obstruc gallbladder TECHNIQUE: Imaging protocol: Real time ultrasound of the abdomen with image documentation. Limited exam focused on the right upper quadrant. COMPARISON: CT abdomen pelvis w con* [id number] 02/10/2022 1:20 PM FINDINGS: Liver: Visualized hepatic parenchyma is echogenic. The liver contour is grossly smooth. Gallbladder: No evidence of cholelithiasis. No significant wall thickening to suggest cholecystitis.The director of instructional technology reports a negative sonographic German's sign. There is trace free fluid in the right upper quadrant. Biliary ducts: The CBD is nondilated, measuring 6 mm. No sonographic evidence of intraductal stone. Pancreas: The pancreas is mostly obscured bowel gas. Visualized portions are grossly unremarkable. Right kidney: The right kidney is normal in echotexture and measures 10.9 cm in length. No evidence of hydronephrosis. US/US gall bladder [id number] IMPRESSION: 1. No cholelithiasis or sonographic evidence of acute cholecystitis.
--- NOTE | 2023-10-25 17:39 | CTR_ITS ---
PROCEDURE INFORMATION: Exam: CT Abdomen And Pelvis With Contrast Exam date and time: 10/25/2023 6:24 PM Age: 33 years old Clinical indication: Abdominal pain; Generalized; Additional info: Abd pain, probable gallbladder TECHNIQUE: Imaging protocol: Computed tomography of the abdomen and pelvis with contrast. Radiation optimization: All CT scans at this facility use at least one of these dose optimization techniques: automated exposure control; mA and/or kV adjustment per patient size (includes targeted exams where dose is matched to clinical indication); or iterative reconstruction. Contrast material: OMNI 350; Contrast volume: 100 ml; Contrast route: INTRAVENOUS (IV); COMPARISON: CT abdomen pelvis w con* [id number] 02/10/2022 1:20 PM RADIATION DOSE METRICS: Total DLP (mGy-cm): 350.21 FINDINGS: Lungs: Hepatomegaly and hepatic steatosis with right lobe measuring up to 19.5 cm. The liver was previously nonenlarged. No evidence of focal hepatic lesion. Diaphragm: No evidence of diaphragmatic defect. Liver: No focal hepatic lesion. Gallbladder and bile ducts: Distended without significant wall thickening. No intra-hepatic or extra-hepatic biliary dilatation. Pancreas: There are peripancreatic inflammatory changes with retroperitoneal fluid suggestive of acute interstitial edematous pancreatitis. No convincing evidence of necrosis. There is fluid in the right upper quadrant in the region of the gallbladder fossa/sarahy hepatis. No discrete collection, abscess or hematoma. No evidence of pseudocyst. Spleen: Unremarkable. Adrenal glands: Unremarkable. Kidneys and ureters: No renal parenchymal abnormality. No hydronephrosis or ureteral stone. Stomach and bowel: The proximal duodenal and gastric antrum is secondarily inflamed. No evidence of bowel obstruction. Appendix: Normal appendix. Intraperitoneal space: No evidence of free air or fluid collection. Vasculature: No aneurysmal dilatation or dissection of the abdominal aorta. The celiac trunk, SMA and ROBIN are grossly patent. No evidence of IVC thrombus. The portal vein, SMV and splenic veins are grossly patent. Lymph nodes: No adenopathy. Urinary bladder: Grossly unremarkable. Reproductive: Grossly unremarkable. Bones/joints: No evidence of acute fracture or aggressive osseous lesion. Soft tissues: No evidence of fluid collection or hematoma in the superficial soft tissues. CT/CT abdomen pelvis w con* [id number] IMPRESSION: 1. Findings suggestive of acute pancreatitis. Correlation with serum lipase is recommended. 2. Worsening hepatic steatosis with hepatomegaly. Consider correlation with clinical and laboratory findings for steatohepatitis. The findings were verbally communicated by telephone with TINO Rice at 6:55 PM PRINTING AND STAMPING SUPERVISOR on 10/25/2023. The findings were acknowledged and understood.
[2023-10-25 17:48] LABS: Lipase 461 U/L (13-60)
[2023-10-25] MEDS: morphine 4 mg/mL SDV 1 mL IVP (17:48)
[2023-10-25] MEDS: iohexol 350 mg/mL 500 mL Btl (per mL) IV (18:25)
[2023-10-25] MEDS: HYDROmorphone 1 mg/mL INJ 1 mL IVP (19:13)
[2023-10-25 21:04] LABS: Hepatitis A Antibody IgM Non-Reactive (Nonreactive); Hepatitis B Core IgM Non-Reactive (Nonreactive); Hepatitis B Surface Antigen Non-Reactive (Nonreactive); Hepatitis C Virus Antibody Non-Reactive (Nonreactive)
== END 2023-10-25 19:27 | disposition home or self-care (01) ==
PROVIDERS: Emergency Provider Nurse Practitioner Family
DX: K85.90 Acute pancreatitis without necrosis or infection, unspecified (principal); K70.30 Alcoholic cirrhosis of liver without ascites; F10.20 Alcohol dependence, uncomplicated; Z72.0 Tobacco use
CPT/HCPCS: 71045; 74177; 76705; 80053; 80074; 83690; 85025; 96361; 96374; 96375; 99285; J1170; J2270; J2405; J7030; Q9967